=== PATIENT | female | born 1960 | race Caucasian/White ===

== ENCOUNTER 2017-02-27 07:39 | Inpatient (IN) | payer SELFPAY ==
[~2017-02-27] VITALS: Ht 152.4 cm; Wt 59.0 kg
[2017-02-27 08:18] LABS: BASOPHIL % 0.5 % (0-2); PLATELET COUNT 290 x10^3mcL (130-400); RED CELL DISTRIBUTION WIDTH 13.7 % (11.5-14.5)
[2017-02-27 08:26] LABS: CALCIUM 8.8 mg/dL (8.5-10.1); CARBON DIOXIDE 24.8 mmol/L (21-32); CHLORIDE SERUM 101 mmol/L (98-107); GFR1 > 60 mL/min; GLUCOSE SERUM 180 mg/dL (74-106); POTASSIUM SERUM 3.6 mmol/L (3.5-5.1); SODIUM SERUM 136 mmol/L (136-145)
[2017-02-27 08:31] LABS: ALBUMIN 3.9 g/dL (3.4-5.0); ALKALINE PHOSPHATASE 116 U/L (46-116); ALT/SGPT 24 U/L (14-59); AST/SGOT 24 U/L (15-37); BILIRUBIN TOTAL 0.7 mg/dL (0.20-1.00); TOTAL PROTEIN, SERUM 8.4 g/dL (6.4-8.2)
[2017-02-27] MEDS ORDERED: ATENOLOL25 MG PO (10:30)
[2017-02-27 12:02] LABS: MAGNESIUM 1.7 mg/dL (1.8-2.4); PHOSPHOROUS 2.8 mg/dL (2.5-4.9); T3 TOTAL 0.98 ng/mL
[2017-02-27 12:12] LABS: FREE T4 1.17 ng/dL (0.76-1.46); FREE THYROXINE INDEX 3.4 ug/dL (1.4-4.5); T4(THYROXINE) 9.8 ug/dL (4.7-13.3)
[2017-02-27 12:20] LABS: CHOLESTEROL/HDL RATIO 3.6
[2017-02-27 13:12] VITALS: BP 173/95
[2017-02-27 17:55] VITALS: BP 181/111
[2017-02-27 19:08] LABS: UA SPECIFIC GRAVITY >=1.030 (1.005-1.035); microscopic required? YES; urine erythrocyte 3+ (NEGATIVE)
[2017-02-27 19:13] LABS: AMPHETAMINE QUAL UR NONE DETECTED (NEG <=1000)
[2017-02-27 20:47] VITALS: BP 171/105
[2017-02-27 21:47] VITALS: BP 162/95
[2017-02-27 23:01] VITALS: BP 177/95
[2017-02-28 00:52] VITALS: BP 164/93
[2017-02-28 05:17] VITALS: BP 168/92
[2017-02-28 06:41] LABS: BASOPHIL % 0.6 % (0-2); PLATELET COUNT 299 x10^3mcL (130-400); RED CELL DISTRIBUTION WIDTH 13.9 % (11.5-14.5)
[2017-02-28 07:12] LABS: CALCIUM 8.8 mg/dL (8.5-10.1); CARBON DIOXIDE 26.8 mmol/L (21-32); CHLORIDE SERUM 101 mmol/L (98-107); GFR1 > 60 mL/min; GLUCOSE SERUM 131 mg/dL (74-106); MAGNESIUM 2.4 mg/dL (1.8-2.4); PHOSPHOROUS 2.9 mg/dL (2.5-4.9); SODIUM SERUM 137 mmol/L (136-145)
[2017-02-28 07:15] VITALS: Ht 152.4 cm; Wt 59.0 kg
[2017-02-28 10:00] VITALS: BP 115/57
[2017-02-28 15:50] VITALS: BP 129/68
[2017-03-01] VITALS (10 sets, daily range): BP systolic 104–133; BP diastolic 62–78
[2017-03-01 05:49] LABS: BASOPHIL % 1.3 % (0-2); PLATELET COUNT 243 x10^3mcL (130-400); RED CELL DISTRIBUTION WIDTH 12.8 % (11.5-14.5)
[2017-03-01 05:57] LABS: CALCIUM 8.8 mg/dL (8.5-10.1); CARBON DIOXIDE 24.7 mmol/L (21-32); CHLORIDE SERUM 105 mmol/L (98-107); GFR1 > 60 mL/min; GLUCOSE SERUM 104 mg/dL (74-106); POTASSIUM SERUM 3.6 mmol/L (3.5-5.1); SODIUM SERUM 139 mmol/L (136-145)
[2017-03-02 05:15] VITALS: BP 124/78
[2017-03-02 05:58] LABS: BASOPHIL % 0.4 % (0-2); PLATELET COUNT 217 x10^3mcL (130-400); RED CELL DISTRIBUTION WIDTH 14.3 % (11.5-14.5)
[2017-03-02 06:19] LABS: CHLORIDE SERUM 108 mmol/L (98-107); CREATININE SERUM 0.9 mg/dL (0.6-1.0); GFR1 > 60 mL/min; GLUCOSE SERUM 92 mg/dL (74-106); POTASSIUM SERUM 3.2 mmol/L (3.5-5.1); SODIUM SERUM 141 mmol/L (136-145)
[2017-03-02 10:05] VITALS: BP 124/78
[2017-03-02 10:27] VITALS: BP 119/24
[2017-03-02] MEDS ORDERED: CLOPIDOGREL75 M1 PO (12:23)
[2017-03-02] MEDS ORDERED: ATORVASTATIN CA40 M1 PO (12:24)
[2017-03-02] MEDS ORDERED: NIT0.4 SL (12:25)
[2017-03-02] MEDS ORDERED: METOPROLOL TART25 M1 PO (12:26)
[2017-03-02] MEDS ORDERED: ZES20 PO (12:27)
[2017-03-02] MEDS ORDERED: ASPIR 8181 MG PO (12:27)
== END 2017-03-02 13:30 | disposition home or self-care (01) | DRG 250 ==
LOC: ED 07:39 → DU 10:33 → IC 02-28 15:20 → DU 03-01 15:05
PROVIDERS: Emergency Medicine; Internal Medicine Interventional Cardiology; ADMIT Family Medicine
PROC: 4A023N7 Measurement of Cardiac Sampling and Pressure, Left Heart, Percutaneous Approach (ICD-10-PCS; 2017-02-28)
PROC: B2151ZZ Fluoroscopy of Left Heart using Low Osmolar Contrast (ICD-10-PCS; 2017-02-28)
PROC: B2111ZZ Fluoroscopy of Multiple Coronary Arteries using Low Osmolar Contrast (ICD-10-PCS; 2017-02-28)
PROC: 02703ZZ Dilation of Coronary Artery, One Artery, Percutaneous Approach (ICD-10-PCS; principal; 2017-02-28 13:30)
DX: I24.9 Acute ischemic heart disease, unspecified (principal); N17.0 Acute kidney failure with tubular necrosis; I10 Essential (primary) hypertension; Z68.27 Body mass index [BMI] 27.0-27.9, adult; Z91.19 Patient's noncompliance with other medical treatment and regimen; Z82.49 Family history of ischemic heart disease and other diseases of the circulatory system; E83.42 Hypomagnesemia
CPT/HCPCS: CLHCL; 83880; 84439; C1760; C1769; C1876; C1887; C1894; J0360; J1327; J1644; J1885; J2001; J2250; J2270; J2405; J2550; J3010; J3475; J3490; J7030; J7040; J7050; Q0092; Q9967

== ENCOUNTER 2018-01-21 09:22 | Inpatient (IN) | payer BC ==
[~2018-01-21] VITALS: Ht 152.4 cm; Wt 61.3 kg
[~2018-01-21 09:22] MED LIST: ASPIR 8181 MG PO; ATENOLOL25 MG PO; ATORVASTATIN CA40 M1 PO; CLOPIDOGREL75 M1 PO; METOPROLOL TART25 M1 PO; NIT0.4 SL; ZES20 PO
[2018-01-21 09:24] VITALS: Ht 152.4 cm; Wt 61.3 kg
[2018-01-21 10:36] LABS: BASOPHIL % 0.7 % (0-2); PLATELET COUNT 340 x10^3mcL (130-400); RED CELL DISTRIBUTION WIDTH 13.4 % (11.5-14.5)
[2018-01-21 10:43] LABS: CALCIUM 8.9 mg/dL (8.5-10.1); CARBON DIOXIDE 26.5 mmol/L (21-32); CREATININE SERUM 1.2 mg/dL (0.6-1.0); POTASSIUM SERUM 3.5 mmol/L (3.5-5.1)
[2018-01-21 10:47] LABS: ALBUMIN 3.8 g/dL (3.4-5.0); BILIRUBIN TOTAL 0.4 mg/dL (0.20-1.00); MAGNESIUM 1.7 mg/dL (1.8-2.4); TOTAL PROTEIN, SERUM 8.2 g/dL (6.4-8.2)
[2018-01-21 11:21] LABS: FREE T4 0.95 ng/dL (0.76-1.46); FREE THYROXINE INDEX 2.3 ug/dL (1.4-4.5); T4(THYROXINE) 7.1 ug/dL (4.7-13.3)
[2018-01-21 11:22] LABS: T3 TOTAL 0.98 ng/mL
[2018-01-21] MEDS ORDERED: HYZAAR1 TA2 (12:25)
[2018-01-21 13:58] VITALS: BP 130/79
[2018-01-21 14:14] LABS: microscopic required? NO
[2018-01-21 14:20] LABS: UA SPECIFIC GRAVITY <=1.005 (1.005-1.035); urine erythrocyte NEGATIVE (NEGATIVE)
[2018-01-21 14:27] LABS: AMPHETAMINE QUAL UR NONE DETECTED (See below)
[2018-01-21 20:29] VITALS: BP 108/78
[2018-01-22 04:59] VITALS: BP 115/83
[2018-01-22 06:31] LABS: CALCIUM 8.2 mg/dL (8.5-10.1); CARBON DIOXIDE 28.1 mmol/L (21-32); CREATININE SERUM 1.1 mg/dL (0.6-1.0); POTASSIUM SERUM 4.1 mmol/L (3.5-5.1)
[2018-01-22 06:42] LABS: BASOPHIL % 0.9 % (0-2); PLATELET COUNT 300 x10^3mcL (130-400); RED CELL DISTRIBUTION WIDTH 13.9 % (11.5-14.5)
[2018-01-22 09:11] VITALS: BP 118/70
[2018-01-22 12:47] VITALS: BP 116/79
[2018-01-22 17:10] VITALS: BP 125/80
[2018-01-22 20:15] VITALS: BP 119/63
[2018-01-23 05:43] VITALS: BP 137/81
[2018-01-23 08:49] VITALS: BP 160/84
[2018-01-23 13:24] VITALS: BP 137/76
[2018-01-23] MEDS ORDERED: ELIQUIS2.5 MG PO (13:43)
[2018-01-23] MEDS ORDERED: BET80 PO (13:43)
[2018-01-23 14:02] VITALS: BP 137/76
== END 2018-01-23 15:04 | disposition home or self-care (01) | DRG 308 ==
LOC: ED 09:22 → DU 12:13
PROVIDERS: Emergency Medicine; Family Medicine
DX: I48.0 Paroxysmal atrial fibrillation (principal); N17.0 Acute kidney failure with tubular necrosis; I10 Essential (primary) hypertension; E83.42 Hypomagnesemia; I25.10 Atherosclerotic heart disease of native coronary artery without angina pectoris; Z95.5 Presence of coronary angioplasty implant and graft; Z98.49 Cataract extraction status, unspecified eye; Z83.3 Family history of diabetes mellitus; Z82.49 Family history of ischemic heart disease and other diseases of the circulatory system; Z80.52 Family history of malignant neoplasm of bladder
CPT/HCPCS: 84439; J1644; J3475; J7030; J8597; Q0092